=== PATIENT | male | born 1985 | race Caucasian/White ===

== ENCOUNTER → 2020-02-17 | Outpatient (CLI) | payer BC ==
--- NOTE | 2020-02-17 08:04 | US ---
EXAMINATION TYPE: US abdomen complete DATE OF EXAM: 02/17/2020 COMPARISON: NONE CLINICAL HISTORY: 34-year-old male R10.9 abdominal pain. Specifically LUQ pain TECHNIQUE: Multiple sonographic images of the abdomen are obtained. FINDINGS: EXAM MEASUREMENTS: Liver Length: 12.7 cm Gallbladder Wall: 0.3 cm CBD: 0.2 cm Spleen: 13.9 cm Right Kidney: 9.6 x 5.8 x 4.8 cm Left Kidney: 10.2 x 5.4 x 5.2 cm Pancreas: Portions of the pancreatic tail and body are visualized. Remainder suboptimally visualized due to shadowing from bowel gas. Liver: Homogeneous appearance without focal lesion. Gallbladder: wnl Evidence for sonographic Salazar's sign: no CBD: wnl Spleen: Borderline enlarged Right Kidney: Inferior pole obscured by bowel gas. No hydronephrosis. Left Kidney: No hydronephrosis. Upper IVC: wnl Abd Aorta: Partially obscured by overlying bowel gas IMPRESSION: 1. Borderline splenomegaly at 13.9 cm. 2. Suboptimal visualization of portions of certain structures such as the pancreas, abdominal aorta, and lower pole right kidney. Otherwise, no specific sonographic abnormality of the abdomen.
== END | disposition home or self-care (01) ==
LOC: RADUSWWP 06:32
PROVIDERS: ATTEND Family Medicine
DX: R16.1 Splenomegaly, not elsewhere classified (principal)
CPT/HCPCS: 76700